=== PATIENT | male | born 2000 | race Caucasian/White ===

== ENCOUNTER 2020-04-03 20:11 | Emergency (ER) | payer MEDICAID ==
[~2020-04-03] VITALS: Ht 165.1 cm; Wt 62.0 kg
[2020-04-03] MEDS ORDERED: KETOROLAC 30MG/ML VIAL IM ONE (22:30)
[2020-04-03 23:20] VITALS: BP 131/74
== END 2020-04-03 23:21 | disposition home or self-care (01) ==
LOC: ER 20:11
DX: M54.5 Low back pain (principal); V43.62XA Car passenger injured in collision with other type car in traffic accident, initial encounter; Y93.89 Activity, other specified; Y92.488 Other paved roadways as the place of occurrence of the external cause
CPT/HCPCS: 96372; 99283; J1885